=== PATIENT | male | born 1940 | race Caucasian/White ===

== ENCOUNTER → 2017-07-06 | Outpatient (CLI) | payer OTHER, MEDICARE | LOC: FIMAGING 09:15 | PROVIDERS: ATTEND Internal Medicine | DX: E04.2 Nontoxic multinodular goiter (principal) | CPT/HCPCS: 78014; A9516 ==

== ENCOUNTER → 2017-07-28 | Outpatient (CLI) | payer OTHER, MEDICARE | LOC: CIMAGING 08:43 | PROVIDERS: ATTEND Internal Medicine | DX: E04.1 Nontoxic single thyroid nodule (principal) | CPT/HCPCS: 76536-PO ==

== ENCOUNTER → 2018-05-20 | Outpatient (CLI) | payer OTHER | LOC: SUPIMAGING 18:40 | PROVIDERS: ATTEND Registered Nurse | DX: R05 Cough (principal); J43.9 Emphysema, unspecified | CPT/HCPCS: 71046-PN ==